=== PATIENT | male | born 1975 | race Caucasian/White ===

== ENCOUNTER 2017-03-05 23:59 | Emergency (ER) | payer OTHER ==
--- NOTE | 2017-03-06 00:07 | EDPHY ---
H & P Stated Complaint: CHILLS N,V, HEADACHE HPI/ROS: HPI CHIEF COMPLAINT: Nausea, vomiting, headache, MS HISTORY OF PRESENT ILLNESS: This patient very pleasant 41-year-old male, significant past medical history for MS, recently seen by his neurologist Dr. Moser in [place] and thinks that he may be having relapsing MS. Presents emergency room today with a gradual onset of headache that started in his lower neck paravertebral rating into his head now has pressure in his head. Associated nausea vomiting. No fever. No meningeal signs no stiff neck. No chest pain or shortness of breath. He did have multiple episodes of vomiting. He denies trauma. He states yesterday he vaccuumed the house and emptied the litter box, developed, shoulder pain arm pain muscle aches, this is nail been more tight in the back of his neck and posterior shoulder since then. Tells me he thinks his MS is flaring up in giving him this muscle tightness and pain. He denies any visual disturbance, denies double vision, this is not the worst headache of his life denies fever. States the headache is not sudden onset not thunderclap. Gradual. With back and shoulder and neck and muscle tightness. Past Medical History: MS Past Surgical History: No recent surgical history Social History: Denies daily use drugs alcohol tobacco products Family History: Noncontributory ROS REVIEW OF SYSTEMS: A comprehensive 10 point review of systems is otherwise negative aside from elements mentioned in the history of present illness. Exam Constitutional appears well nontoxic, triage nursing summary reviewed, vital signs reviewed, awake/alert. Eyes normal conjunctivae and sclera, EOMI, PERRLA. HENT normal inspection, atraumatic, moist mucus membranes, no epistaxis, neck supple/ no meningismus, no raccoon eyes. Respiratory clear to auscultation bilaterally, normal breath sounds, no respiratory distress, no wheezing. Cardiovascular rate normal, regular rhythm, no murmur, no edema, distal pulses normal. Gastrointestinal soft, non-tender, no rebound, no guarding, normal bowel sounds, no distension, no pulsatile mass. Genitourinary no CVA tenderness. Musculoskeletal no midline vertebral tenderness, full range of motion, no calf swelling, no tenderness of extremities, no meningismus, good pulses, neurovascularly intact. Skin pink, warm, & dry, no rash, skin atraumatic. Neurologic unremarkable neurological exam specifically no meningeal signs, no stiff neck, full range of motion of his neck, good chin to chest without any difficulty, awake, alert and oriented x 3, AAOx3, moves all 4 extremities equally, motor intact, sensory intact, CN II-XII intact, normal cerebellar, normal vision, normal speech. Psychiatric normal mood/affect. Heme/Lymph/Immune no lymphadenopathy. Differential Diagnosis: Includes but is not limited to in a particular order, mom MS flare, migraine headache, tension headache, cluster headache, intracranial bleed which I doubt. Medical Decision Making: Plan for this patient: IV establishment, IV fluid bolus, migraine cocktail, CT head without contrast. He does have a normal neurological exam here. Most likely this is migraine headache versus MS flare. Doubt intracranial bleed. Re-evaluation: CT scan of the head without IV contrast The results of the study are negative for acute abnormality. No bleed.. The study was read by Dr. Quiroga. I viewed the images myself on the PACS system. 0218AM: On re-examination at this time patient is resting comfortably. Tells me his headache is nail 90% resolved. I did reexamine he has a normal neurological exam. No meningeal signs. Resting comfortably. He is requesting discharge home. Given the patient appears well, nontoxic no fever, no abnormal significant labs. Normal neurological exam no meningeal signs. I do not feel this patient has meningitis. I do not feel the patient is a lumbar puncture. No evidence of bleed. CT scan unremarkable. Feels much better after migraine cocktail. Recommend close follow-up with his neurologist return emergency room if there is worsening symptoms questions or concerns he understands. Source: Patient - Personal History Current Tetanus/Diphtheria Vaccine: Yes Current Tetanus Diphtheria and Acellular Pertussis (TDAP): Yes - Medical/Surgical History Hx Asthma: No Hx Chronic Respiratory Disease: No Hx Diabetes: No Hx Cardiac Disease: No Hx Renal Disease: No Hx Cirrhosis: No Hx Alcoholism: No Hx HIV/AIDS: No Hx Splenectomy or Spleen Trauma: No Other PMH: MS - Social History Smoking Status: Current every day smoker Constitutional: Initial Vital Signs Temperature (C) 36.9 C 03/06/17 00:03 Heart Rate 68 03/06/17 00:03 Respiratory Rate 18 03/06/17 00:03 Blood Pressure 108/87 H 03/06/17 00:03 O2 Sat (%) 97 03/06/17 00:03 O2 Delivery Mode Room Air Allergies/Adverse Reactions: No Known Allergies Allergy (Verified 03/06/17 00:05) Home Medications: Medication Instructions Recorded Baclofen 04/09/16 Gabapentin 04/09/16 Tysabri 04/09/16 Medical Decision Making - Data Points Laboratory Results: Laboratory Results 03/06/17 00:34 03/06/17 00:34 03/06/17 03/06/17 03/06/17 00:34 00:34 00:34 WBC 10.22 10^3/uL H 10^3/uL (3.80-9.50) RBC 4.87 10^6/uL 10^6/uL (4.40-6.38) Hgb 15.4 g/dL g/dL (13.7-17.5) Hct 44.6 % % (40.0-51.0) MCV 91.6 fL fL (81.5-99.8) MCH 31.6 pg pg (27.9-34.1) MCHC 34.5 g/dL g/dL (32.4-36.7) RDW 14.1 % % (11.5-15.2) Plt Count 166 10^3/uL 10^3/uL (150-400) MPV 10.4 fL fL (8.7-11.7) Neut % (Auto) 64.7 % % (39.3-74.2) Lymph % (Auto) 23.8 % % (15.0-45.0) O'Brien % (Auto) 3.7 % L % (4.5-13.0) Eos % (Auto) 5.6 % % (0.6-7.6) Baso % (Auto) 1.1 % % (0.3-1.7) Nucleat RBC Rel Count 0.2 % % (0.0-0.2) Absolute Neuts (auto) 6.62 10^3/uL H 10^3/uL (1.70-6.50) Absolute Lymphs (auto) 2.43 10^3/uL 10^3/uL (1.00-3.00) Absolute Monos (auto) 0.38 10^3/uL 10^3/uL (0.30-0.80) Absolute Eos (auto) 0.57 10^3/uL H 10^3/uL (0.03-0.40) Absolute Basos (auto) 0.11 10^3/uL H 10^3/uL (0.02-0.10) Absolute Nucleated RBC 0.02 10^3/uL H 10^3/uL (0-0.01) Immature Gran % 1.1 % % (0.0-1.1) Immature Gran # 0.11 10^3/uL H 10^3/uL (0.00-0.10) PT 14.0 SEC SEC (12.0-15.0) INR 1.09 (0.83-1.16) Sodium 140 mEq/L mEq/L (134-144) Potassium 3.8 mEq/L mEq/L (3.5-5.2) Chloride 106 mEq/L mEq/L (97-110) Carbon Dioxide 27 mEq/l mEq/l (22-31) Anion Gap 7 mEq/L L mEq/L (8-16) BUN 9 mg/dL mg/dL (7-23) Creatinine 1.0 mg/dL mg/dL (0.7-1.3) Estimated GFR > 60 Glucose 96 mg/dL mg/dL (70-100) Calcium 10.0 mg/dL mg/dL (8.5-10.4) Medications Given: Discontinued Medications Diphenhydramine HCl (Benadryl Injection) 50 mg IVP EDNOW ONE Stop: 03/06/17 00:18 Last Admin: 03/06/17 00:37 Dose: 50 mg Sodium Chloride (Ns) 1,000 mls @ 0 mls/hr IV ONCE ONE; Wide Open PRN Reason: Protocol Stop: 03/06/17 00:18 Last Admin: 03/06/17 00:37 Dose: 1,000 mls Ketorolac Tromethamine (Toradol) 30 mg IVP EDNOW ONE Stop: 03/06/17 00:18 Last Admin: 03/06/17 00:37 Dose: 30 mg Metoclopramide HCl (Reglan Injection) 10 mg IVP EDNOW ONE Stop: 03/06/17 00:18 Last Admin: 03/06/17 00:37 Dose: 10 mg Departure - Departure Disposition: Home, Routine, Self-Care Clinical Impression: Headache Qualifiers: Headache type: unspecified Headache chronicity pattern: acute headache Intractability: intractable Qualified Code(s): R51 - Headache Condition: Good Instructions: General Headache (ED) Additional Instructions: 1. Please follow up with her primary care doctor. 2. Return emergency room if you have any worsening symptoms questions or concerns. Referrals: VICKY ELIZABETH [Primary Care Provider] - As per Instructions
[2017-03-06] MEDS ORDERED: NS 1,000 ML IV ONE (00:17)
[2017-03-06] MEDS ORDERED: METOCLOPRAMIDE 10 MG/2 ML VIAL IVP ONE (00:17)
[2017-03-06] MEDS ORDERED: KETOROLAC 30 MG/1 ML SDV IVP ONE (00:17)
[2017-03-06 00:52] LABS: % IMMATURE GRANULYOCYTES 1.1 % (0.0-1.1); ABSOLUTE IMMATURE GRANULOCYTES 0.11 10^3/uL (0.00-0.10); ABSOLUTE NRBC COUNT 0.02 10^3/uL (0-0.01); ADD DIFF? NO; ADD MORPH? NO; ADD SCAN? NO; ATYPICAL LYMPHOCYTE FLAG 0 (0-99); FRAGMENT RBC FLAG 0 (0-99); HEMATOCRIT 44.6 % (40.0-51.0); HEMOGLOBIN 15.4 g/dL (13.7-17.5); LEFT SHIFT FLG 0 (0-99); LIPEMIA HEMOLYSIS FLAG 90 (0-99); MEAN CELL HEMOGLOBIN 31.6 pg (27.9-34.1); MEAN CELL HEMOGLOBIN CONCENTR. 34.5 g/dL (32.4-36.7); MEAN CELL VOLUME 91.6 fL (81.5-99.8); MEAN PLATELET VOLUME 10.4 fL (8.7-11.7); NRBC-AUTO% 0.2 % (0.0-0.2); PLATELET CLUMPS FLAG 10 (0-99); PLATELET COUNT 166 10^3/uL (150-400); RED BLOOD CELL COUNT 4.87 10^6/uL (4.40-6.38); RED CELL DISTRIBUTION WIDTH 14.1 % (11.5-15.2)
[2017-03-06 00:54] LABS: ANION GAP 7 mEq/L (8-16); CARBON DIOXIDE 27 mEq/l (22-31); CHLORIDE 106 mEq/L (97-110); GLOMERULAR FILTRATION RATE > 60; GLUCOSE 96 mg/dL (70-100); POTASSIUM 3.8 mEq/L (3.5-5.2); SODIUM 140 mEq/L (134-144)
[2017-03-06 00:57] LABS: INR 1.09 (0.83-1.16)
[2017-03-06 02:30] VITALS: BP 113/71; PULSE 61; RESP 18; TEMP 97.7; O2SAT 95
== END 2017-03-06 02:29 | disposition home or self-care (01) ==
DX: R51 Headache (principal); F17.200 Nicotine dependence, unspecified, uncomplicated
CPT/HCPCS: 96374; J1200; J1885; J2765

== ENCOUNTER 2017-04-14 19:56 | Emergency (ER) | payer OTHER ==
[2017-04-14 20:02] VITALS: RESP 16
[2017-04-14] MEDS ORDERED: METOCLOPRAMIDE 10 MG/2 ML VIAL IVP ONE (20:23)
[2017-04-14] MEDS ORDERED: NS 1,000 ML IV ONE (20:23)
[2017-04-14] MEDS ORDERED: KETOROLAC 30 MG/1 ML SDV IVP ONE (20:23)
--- NOTE | 2017-04-14 20:29 | EDPHY ---
H & P Time Seen by Provider: 04/14/17 20:16 HPI/ROS: CHIEF COMPLAINT: Headache HISTORY OF PRESENT ILLNESS: Patient was in our emergency department on March 06 with identical symptoms had a negative head CT was treated and discharged. He has a neurologist in [place] Dr. Moser who thinks he is having migraines. Patient developed headache today at work at noon which was slow in onset identical to the previous when he had last month. It is whole head but mostly on the left side. It is worse with light and associated with nausea and some vomiting. Especially worse when he tries to focus close up. Not associated with trauma or fever. No radiation of the pain. REVIEW OF SYSTEMS: Eye: no change in vision, no aura ENT: no sore throat Cardiac: no chest pain or syncope Pulmonary: no cough or SOB Abdomen: No diarrhea or abdominal pain Musculoskeletal: no back pain or neck pain Skin: no rash Neuro: HPI. The patient has had some intermittent left-sided weakness over the past week which he attributes to his MS which is typical for him. Constitutional: no fever : no urinary symptoms A comprehensive 10 point review of systems is otherwise negative aside from elements mentioned in the history of present illness. PAST MEDICAL HISTORY: Multiple sclerosis Social history: Works in electronics General Appearance: Alert and conversant, cooperative. Eyes: No scleral icterus. Extraocular motion intact and no proptosis. ENT, Mouth: Normal mucous membranes. Tympanic membranes normal. No facial swelling or tenderness. Respiratory: Normal respiratory effort, breath sounds equal, lungs are clear to auscultation. Cardiovascular: Regular rate and rhythm. Gastrointestinal: Abdomen is soft and non tender. Neurological: Alert and oriented x3. Normally conversant. Face symmetric, normal movement and sensation in all extremities. Ambulatory, not ataxic, normal [id number] bilaterally and no pronator drift. Skin: Warm and dry, no rashes. Musculoskeletal: Normal range of motion of the neck, no meningeal signs. Psychiatric: Not agitated. Emergency Department course/MDM: Patient presents with headache which appears to be most likely benign, migraine is certainly high in the differential. He had negative imaging during his emergency department visit last month. Plan to treat with IV Reglan, Benadryl, Toradol and IV fluids. No imaging. 2132: Feels better, 2/10 headache, stable for discharge. Wants to go home. Smoking Status: Heavy smoker Constitutional: Initial Vital Signs Temperature (C) 37.0 C 04/14/17 19:58 Heart Rate 63 04/14/17 19:58 Respiratory Rate 16 04/14/17 19:58 Blood Pressure 118/75 04/14/17 19:58 O2 Sat (%) 96 04/14/17 19:58 O2 Delivery Mode Room Air Allergies/Adverse Reactions: unknown antibiotic Allergy (Uncoded 04/14/17 20:03) Home Medications: Medication Instructions Recorded Baclofen 04/09/16 Gabapentin 04/09/16 Tysabri 04/09/16 Medical Decision Making Differential Diagnosis: Differential diagnosis considered for headache including but not limited to subarachnoid hemorrhage, migraine headache, tension headache and infectious causes such as meningitis, pharyngitis and sinusitis. - Data Points Medications Given: Discontinued Medications Diphenhydramine HCl (Benadryl Injection) 25 mg IVP EDNOW ONE Stop: 04/14/17 20:24 Last Admin: 04/14/17 20:41 Dose: 25 mg Sodium Chloride (Ns) 1,000 mls @ 0 mls/hr IV ONCE ONE; Wide Open PRN Reason: Protocol Stop: 04/14/17 20:24 Last Admin: 04/14/17 20:40 Dose: 1,000 mls Ketorolac Tromethamine (Toradol) 30 mg IVP EDNOW ONE Stop: 04/14/17 20:24 Last Admin: 04/14/17 20:41 Dose: 30 mg Metoclopramide HCl (Reglan Injection) 10 mg IVP EDNOW ONE Stop: 04/14/17 20:24 Last Admin: 04/14/17 20:41 Dose: 10 mg Departure - Departure Disposition: Home, Routine, Self-Care Clinical Impression: Acute headache Qualifiers: Headache type: unspecified Intractability: not intractable Qualified Code(s): R51 - Headache Condition: Good Instructions: Acute Headache (ED) Referrals: VICKY ELIZABETH [Primary Care Provider] - As per Instructions
[2017-04-14 21:42] VITALS: BP 126/71; PULSE 65; TEMP 98.2; O2SAT 95
== END 2017-04-14 21:41 | disposition home or self-care (01) ==
DX: R51 Headache (principal); E86.9 Volume depletion, unspecified; F17.200 Nicotine dependence, unspecified, uncomplicated
CPT/HCPCS: 96374; J1200; J1885; J2765

== ENCOUNTER 2017-07-09 02:28 | Emergency (ER) | payer OTHER ==
[2017-07-09] MEDS ORDERED: IBUPROFEN 200 MG TAB PO ONE ×2 (03:06)
[2017-07-09 03:19] LABS: COLOR YELLOW; LEUKOCYTE ESTERASE,URINE TRACE (NEGATIVE); NITRITE,URINE NEGATIVE (NEGATIVE)
[2017-07-09 03:24] LABS: MUCUS 1+ /lpf (NONE-1+); WBC,URINE 25-50 /hpf (0-3)
--- NOTE | 2017-07-09 03:31 | EDPHY ---
H & P Stated Complaint: Swelling L testicle yesterday, pain today. Time Seen by Provider: 07/09/17 03:13 HPI/ROS: HPI The patient presents with left testicular pain and swelling which has been present for the last 1 day. His pain is throughout his testicle, achy in nature , does not radiate, is moderate in severity. He did not sustain any trauma to the testicle. He does have a history of epididymitis and has been followed by [facility] for this. About 4 days ago he got an infusion of his Tysabri, which she takes for multiple sclerosis. REVIEW OF SYSTEMS Constitutional: No fever, no chills. Eyes: No discharge. ENT: No sore throat. Cardiovascular: No chest pain, no palpitations. Respiratory: No cough, no shortness of breath. Gastrointestinal: No abdominal pain, no vomiting. Genitourinary: No hematuria. Musculoskeletal: No back pain. Skin: No rashes. Neurological: No headache. PMHx: Multiple sclerosis PHYSICAL General Appearance: Alert, no distress Eyes: Pupils equal and round no pallor or injection ENT, Mouth: Mucous membranes moist Respiratory: Breathing comfortably Gastrointestinal: Abdomen is soft and non-tender, no masses, bowel sounds normal : The left hemiscrotum is erythematous and diffusely tender to palpation, cremasteric reflex is present, there is no inguinal lymphadenopathy Neurological: A&O, moves all extremities Skin: Warm and dry, no rashes Musculoskeletal: Neck is supple non tender Extremities: symmetrical, full range of motion Psychiatric: Patient is oriented X 3, there is no agitation Source: Patient Exam Limitations: No limitations - Personal History Current Tetanus/Diphtheria Vaccine: Unsure Current Tetanus Diphtheria and Acellular Pertussis (TDAP): Unsure - Medical/Surgical History Hx Asthma: No Hx Chronic Respiratory Disease: No Hx Diabetes: No Hx Cardiac Disease: No Hx Renal Disease: No Hx Cirrhosis: No Hx Alcoholism: No Hx HIV/AIDS: No Hx Splenectomy or Spleen Trauma: No Other PMH: MS. - Social History Smoking Status: Heavy smoker Constitutional: Initial Vital Signs Temperature (C) 36.9 C 07/09/17 02:36 Heart Rate 69 07/09/17 02:36 Respiratory Rate 16 07/09/17 02:36 Blood Pressure 138/83 H 07/09/17 02:36 O2 Sat (%) 98 07/09/17 02:36 O2 Delivery Mode Room Air Allergies/Adverse Reactions: unknown antibiotic Allergy (Uncoded 04/14/17 20:03) Home Medications: Medication Instructions Recorded Baclofen 04/09/16 Gabapentin 04/09/16 Tysabri 04/09/16 levOFLOXACIN [levAQUIN (*)] 500 mg PO DAILY #9 tab 07/09/17 Medical Decision Making - Diagnostics Imaging Results: Imaging Impressions Testicular Ultrasound 07/09/17 02:43 Impression: 1. Vascular 2 x 2 cm mass involving the left epididymal head and medial left testis with a differential diagnosis of left testicular neoplasm invading the epididymis or severe left epididymitis with invasion of the testis. Recommend follow-up ultrasound in two weeks following antibiotic therapy and follow-up urology consult. 2. No testicular torsion. 3. Normal right testis. 4. Left hydrocele. Findings and recommendations discussed with emergency department physician, Maryse Leonard MD at 0325 hours on July 09, 2017. Final report concurs with initial preliminary interpretation. Differential Diagnosis: 41-year-old man with multiple sclerosis who received treatment several days ago now presents with left-sided testicular pain and swelling without any systemic signs of illness. Differential diagnosis includes epididymitis, scrotal abscess, testicular torsion. Ultrasound performed demonstrating likely epididymitis with hydrocele. UA shows signs of infection. I will treat him for bacterial epididymitis with Levaquin. His I will also give him pain medication. I have instructed him to follow up with his urologist in the next several days. I have sent a urine culture. - Data Points Medications Given: Discontinued Medications Hydrocodone Bitart/Acetaminophen ([place] 5/325mg Prepack#6) 1 btl TAKEHOME EDNOW ONE Stop: 07/09/17 03:33 Last Admin: 07/09/17 04:25 Dose: 1 btl Ibuprofen (Motrin) 800 mg PO EDNOW ONE Stop: 07/09/17 03:07 Last Admin: 07/09/17 03:08 Dose: 800 mg Levofloxacin (Levaquin) 500 mg PO EDNOW ONE PRN Reason: Protocol Stop: 07/09/17 03:32 Last Admin: 07/09/17 04:25 Dose: 500 mg Departure - Departure Disposition: Home, Routine, Self-Care Clinical Impression: Epididymitis Condition: Good Instructions: Epididymitis (ED) Additional Instructions: Please take ibuprofen 400 mg every 6 hours for your pain. If the pain continues after this, you can then take the [place] I have given you. We will call you if your on the wrong antibiotic for your a bacteria. Please follow-up with the urologist in the next few days. Referrals: [facility] [Provider Group] - As per Instructions Prescriptions: levOFLOXACIN [levAQUIN (*)] 500 mg PO DAILY #9 tab
[2017-07-09] MEDS ORDERED: HYDROCOD/APAP 5/325 PREPACK#6 BTL TAKEHOME ONE (03:32)
[2017-07-09 04:30] VITALS: BP 126/79; PULSE 83; RESP 18; TEMP 97.9; O2SAT 95
== END 2017-07-09 04:47 | disposition home or self-care (01) ==
DX: N45.1 Epididymitis (principal); F17.200 Nicotine dependence, unspecified, uncomplicated